=== PATIENT | male | born 1940 | race Caucasian/White ===

== ENCOUNTER 2025-07-21 18:51 | Emergency (ER) | payer MEDICARE ==
[~2025-07-21] VITALS: Ht 175.3 cm; Wt 107.7 kg
[~2025-07-21 18:51] MED LIST: AMLO-751 PO; ASPI-1 PO; CARD8TAB2 PO; CELE10TA PO; CRES20TA2 PO; FELO10TA28 PO; FINA-48 PO; FINA5TAB2 PO; GLYB3TAB2 PO; LISI20TA35 PO; METF500T13 PO; PRIL40CA PO; TAMS-18 PO; TYLE650T30 PO; ZANT150T15 PO
[2025-07-21 18:53] VITALS: TEMP 97.6
[2025-07-21] MEDS ORDERED: ELIQ5TAB PO (19:12)
[2025-07-21] MEDS ORDERED: ACET-716 PO (20:10)
[2025-07-21] MEDS: ACETAMINOPH W/CODEINE #3 TAB UD PO ONE (20:23)
[2025-07-21 20:41] VITALS: BP 155/62; O2SAT 96
== END 2025-07-21 20:43 | disposition home or self-care (01) ==
LOC: M ED 18:51
DX: S00.03XA Contusion of scalp, initial encounter (principal); S13.4XXA Sprain of ligaments of cervical spine, initial encounter; W01.198A Fall on same level from slipping, tripping and stumbling with subsequent striking against other object, initial encounter; Y92.009 Unspecified place in unspecified non-institutional (private) residence as the place of occurrence of the external cause; Y93.9 Activity, unspecified; Y99.9 Unspecified external cause status; E11.9 Type 2 diabetes mellitus without complications; K21.9 Gastro-esophageal reflux disease without esophagitis; I10 Essential (primary) hypertension; E78.5 Hyperlipidemia, unspecified; G47.33 Obstructive sleep apnea (adult) (pediatric); N40.0 Benign prostatic hyperplasia without lower urinary tract symptoms; Z79.82 Long term (current) use of aspirin; Z79.84 Long term (current) use of oral hypoglycemic drugs; Z79.899 Other long term (current) drug therapy; Z88.1 Allergy status to other antibiotic agents